=== PATIENT | female | born 1950 | race Caucasian/White ===

== ENCOUNTER 2023-05-16 12:50 | Inpatient (IN) | payer MEDICARE ==
[~2023-05-16] VITALS: Ht 170.2 cm; Wt 68.5 kg
[2023-05-16] MEDS: IV NS 0.9% 1,000 ML BAG IV ONE (13:49)
[2023-05-16 13:54] LABS: BASOPHILS % (AUTO) 0.1 % (0.0-2.0); EOSINOPHILS % (AUTO) 0.1 % (0.0-6.0); HEMATOCRIT 37 % (33-45); HEMOGLOBIN 12.4 g/dL (11.5-14.8); LYMPHOCYTES # (AUTO) 0.2 K/uL (0.8-4.8); LYMPHOCYTES % (AUTO) 4.4 % (20.0-44.0); MEAN CORPUSCULAR HEMOGLOBIN 34 PG (26.0-33.0); MEAN CORPUSCULAR HGB CONC 33 g/dl (31.0-36.0); MEAN CORPUSCULAR VOLUME 103 fL (82-100); MONOCYTES # (AUTO) 0.1 K/uL (0.1-1.30); NEUTROPHILS # (AUTO) 3.8 K/uL (1.8-8.9); NEUTROPHILS % (AUTO) 92.4 % (43.0-81.0); PLATELET COUNT (AUTO) 156 K/uL (150-450); RED CELL DISTRIBUTION WIDTH 12.8 % (11.5-15.0); WHITE BLOOD COUNT (AUTO) 4.1 K/uL (4.3-11.0)
[2023-05-16 14:18] LABS: INR 1.04 (0.91-1.10); PARTIAL THROMBOPLASTIN TIME 34.7 SEC (24.3-34.3); PROTHROMBIN TIME 10.7 SECS (9.2-11.1)
[2023-05-16 14:53] LABS: CALCIUM, SERUM 7.8 mg/dL (8.5-10.1); CARBON DIOXIDE 20 mmol/L (21-32); CHLORIDE 104 mmol/L (98-107); CREATININE 2.4 mg/dL (0.6-1.3); GLUCOSE 152 mg/dL (74-106); POTASSIUM 3.9 mmol/L (3.5-5.1); SODIUM SERUM 134 mmol/L (136-145); UREA NITROGEN, BLOOD 29 mg/dL (7-18)
[2023-05-16 14:58] LABS: ALANINE AMINOTRANSFERASE 1097 U/L (12-78); ALBUMIN 3.5 g/dL (3.4-5.0); ALKALINE PHOSPHATASE 55 U/L (46-116); ASPARTATE AMINOTRANSFERASE 978 U/L (15-37); BILIRUBIN,DIRECT 0.1 mg/dL (0.0-0.2); BILIRUBIN,TOTAL 0.2 mg/dL (0.2-1.0); TOTAL PROTEIN, SERUM 6.6 g/dL (6.4-8.2)
[2023-05-16 15:26] LABS: CREATINE KINASE, TOTAL 637 U/L (26-192)
[2023-05-16] MEDS ORDERED: RISP2TAB85 PO (15:33)
[2023-05-16] MEDS ORDERED: ATOR10TA PO (15:33)
[2023-05-16] MEDS ORDERED: ESCI20TA PO (15:33)
[2023-05-16] MEDS ORDERED: LITH300C2 PO (15:33)
[2023-05-16] MEDS ORDERED: PRIM50TA27 PO (15:33)
[2023-05-16] MEDS ORDERED: MELO-105 PO (15:33)
[2023-05-16 15:34] LABS: NT-PRO BNP 503 pg/mL (0-125)
[2023-05-16] MEDS ORDERED: Z GUARD REMEDY 4 OZ OINT TP PRN (17:00)
[2023-05-16] MEDS ORDERED: ONDANSETRON HCL/PF 4 MG/2 ML VIAL IVP PRN (17:00)
[2023-05-16] MEDS ORDERED: ACETAMINOPHEN 325 MG TABLET PO PRN (17:00)
[2023-05-16 18:22] LABS: SERUM AMMONIA < 11 umol/L (11-32)
[2023-05-16 20:30] VITALS: BP 103/58; TEMP 98.4; O2SAT 97
[2023-05-16] MEDS: LITHIUM CARBONATE (300 MG CAP) 300 MG CAPSULE PO SCH (21:30)
[2023-05-16] MEDS: risperiDONE 1 MG TABLET PO SCH (21:35)
[2023-05-16] MEDS: IV 1/2NS 1000 ML 1,000 ML IV PRN (22:31)
[2023-05-16 23:19] VITALS: BP 97/54; TEMP 98.6; O2SAT 92
[2023-05-17 01:38] VITALS: BP 103/58; TEMP 98.4; O2SAT 97
[2023-05-17 04:00] VITALS: BP 111/59; TEMP 98.2; O2SAT 97
[2023-05-17 05:41] VITALS: BP 103/58; TEMP 98.2; O2SAT 97
[2023-05-17 07:57] LABS: BASOPHILS % (AUTO) 0.1 % (0.0-2.0); EOSINOPHILS % (AUTO) 1.3 % (0.0-6.0); HEMATOCRIT 31 % (33-45); HEMOGLOBIN 10.8 g/dL (11.5-14.8); LYMPHOCYTES # (AUTO) 0.9 K/uL (0.8-4.8); LYMPHOCYTES % (AUTO) 30.8 % (20.0-44.0); MEAN CORPUSCULAR HEMOGLOBIN 36 PG (26.0-33.0); MEAN CORPUSCULAR HGB CONC 35 g/dl (31.0-36.0); MEAN CORPUSCULAR VOLUME 103 fL (82-100); MONOCYTES # (AUTO) 0.3 K/uL (0.1-1.30); MONOCYTES % (AUTO) 8.4 % (2.0-12.0); NEUTROPHILS # (AUTO) 1.8 K/uL (1.8-8.9); NEUTROPHILS % (AUTO) 59.4 % (43.0-81.0); PLATELET COUNT (AUTO) 130 K/uL (150-450); RED BLOOD CELL COUNT(AUTO) 3.01 MIL/uL (4.0-5.2); RED CELL DISTRIBUTION WIDTH 12.9 % (11.5-15.0)
[2023-05-17 08:00] VITALS: BP 109/52; TEMP 98.1; O2SAT 97
[2023-05-17 08:09] LABS: CALCIUM, SERUM 9.4 mg/dL (8.5-10.1); CREATININE 0.8 mg/dL (0.6-1.3); POTASSIUM 3.9 mmol/L (3.5-5.1)
[2023-05-17 08:12] LABS: BILIRUBIN,TOTAL 0.7 mg/dL (0.2-1.0); MAGNESIUM 1.9 mg/dL (1.8-2.4); PHOSPHORUS 3.1 mg/dL (2.5-4.9); TOTAL PROTEIN, SERUM 6.4 g/dL (6.4-8.2)
[2023-05-17] MEDS: PRIMIDONE 50 MG TABLET PO SCH (08:22)
[2023-05-17 14:08] LABS: HBSAG SCREEN Negative (Negative); HEPATITIS A AB, IgM Negative (Negative); HEPATITIS B CORE AB, IgM Negative (Negative)
[2023-05-17 16:00] VITALS: BP 106/55; TEMP 99.5; O2SAT 95
[2023-05-17] MEDS: risperiDONE 1 MG TABLET PO SCH (17:05)
[2023-05-17 20:47] VITALS: BP 111/64; TEMP 98.1; O2SAT 98
[2023-05-18] VITALS (7 sets, daily range): BP systolic 104–120; BP diastolic 53–66; TEMP 98–98.8; O2SAT 97–98
[2023-05-18] MEDS: LITHIUM CARBONATE 150 MG CAPSULE PO SCH (10:27)
[2023-05-18] MEDS: DOCUSATE SODIUM 100 MG CAPSULE PO SCH (16:10)
[2023-05-18] MEDS: risperiDONE 1 MG TABLET PO SCH (17:05)
[2023-05-19] VITALS: BP 112/62; TEMP 97.9; O2SAT 97
[2023-05-19 04:00] VITALS: BP 123/62; TEMP 97.7; O2SAT 97
[2023-05-19 04:28] VITALS: BP 123/62; TEMP 97.7; O2SAT 97
[2023-05-19 07:30] VITALS: BP 111/64; TEMP 98.4; O2SAT 99
[2023-05-19 16:00] VITALS: BP 131/66; TEMP 98.8; O2SAT 97
[2023-05-19] MEDS ORDERED: LITHIUM CARBONATE 150 MG CAPSULE PO SCH (21:00)
== END 2023-05-19 18:36 | DRG 558 ==
LOC: ER 12:55 → MED 19:17 → TELE 05-17 04:49
PROVIDERS: ADMIT Internal Medicine; ATTEND Internal Medicine
DX: M62.82 Rhabdomyolysis (principal); N17.9 Acute kidney failure, unspecified; E87.1 Hypo-osmolality and hyponatremia; I50.32 Chronic diastolic (congestive) heart failure; R74.01 Elevation of levels of liver transaminase levels; E78.5 Hyperlipidemia, unspecified; D64.9 Anemia, unspecified; Z20.822 Contact with and (suspected) exposure to COVID-19; T43.595A Adverse effect of other antipsychotics and neuroleptics, initial encounter; F25.0 Schizoaffective disorder, bipolar type; E86.9 Volume depletion, unspecified; E83.51 Hypocalcemia; R53.1 Weakness; W18.30XA Fall on same level, unspecified, initial encounter; Y93.9 Activity, unspecified; Y92.009 Unspecified place in unspecified non-institutional (private) residence as the place of occurrence of the external cause
CPT/HCPCS: 36415; 70450-TC; 71045-TC; 80048-TC; 80053-TC; 80076-TC; 80178-TC; 82140-TC; 82550-TC; 82553; 82607-TC; 83605-TC; 83735-TC; 83880; 84100-TC; 84443-TC; 84484-TC; 85025-TC; 85730-TC; 86850-TC; 87040-TC; 87340; 97110-TC; 97116-TC; 97530-TC; A4223; G0378; J3490; J7030; J7042

== ENCOUNTER 2024-10-21 12:36 | Inpatient (IN) | payer MEDICARE, BC ==
[~2024-10-21] VITALS: Ht 170.2 cm; Wt 66.7 kg
[2024-10-21] MEDS: IV NS 0.9% 1,000 ML BAG IV ONE (13:10)
[2024-10-21 13:12] LABS: PLATELET COUNT (AUTO) 238 K/uL (150-450); RED BLOOD CELL COUNT(AUTO) 3.89 MIL/uL (4.0-5.2); RED CELL DISTRIBUTION WIDTH 13.8 % (11.5-15.0); WHITE BLOOD COUNT (AUTO) 6.0 K/uL (4.3-11.0)
[2024-10-21 13:26] LABS: CALCIUM, SERUM 10.7 mg/dL (8.5-10.1); CREATININE 0.9 mg/dL (0.6-1.3); SODIUM SERUM 145 mmol/L (136-145); UREA NITROGEN, BLOOD 23 mg/dL (7-18)
[2024-10-21 13:32] LABS: ASPARTATE AMINOTRANSFERASE 81 U/L (15-37); TOTAL PROTEIN, SERUM 7.9 g/dL (6.4-8.2)
[2024-10-21 13:35] LABS: INR 1.06 (0.91-1.10); LACTIC ACID 1.9 mmol/L (0.4-2.0)
[2024-10-21 13:54] LABS: APPEARANCE,URINE CLEAR (CLEAR); BLOOD, URINE NEGATIVE Ery/uL (NEGATIVE); LEUKOCYTE ESTERASE ,URINE NEGATIVE (NEGATIVE); NITRITE, URINE NEGATIVE (NEGATIVE); UGLUCOSE NEGATIVE (NEGATIVE)
[2024-10-21] MEDS ORDERED: OLAN10TA3 PO (13:56)
[2024-10-21] MEDS ORDERED: PRIM50TA27 PO (13:56)
[2024-10-21] MEDS ORDERED: ESCI20TA PO (13:56)
[2024-10-21] MEDS ORDERED: ATOR10TA PO (13:56)
[2024-10-21] MEDS ORDERED: VALP250C3 PO (13:56)
[2024-10-21] MEDS ORDERED: MELO-107 PO (13:56)
[2024-10-21] MEDS ORDERED: LITH300C2 PO (13:56)
[2024-10-21 14:09] LABS: ADD URINE CULTURE NO; SQUAMOUS EPITHELIAL CELL,UR 0-2 /HPF (None Seen)
[2024-10-21] MEDS ORDERED: ONDANSETRON HCL/PF 4 MG/2 ML VIAL IVP PRN (14:30)
[2024-10-21] MEDS ORDERED: IV NS 0.9% 1,000 ML IV SCH (14:30)
[2024-10-21] MEDS ORDERED: MAG HYDROX/AL HYDROX/SIMETH 30 ML UDC PO PRN (14:30)
[2024-10-21] MEDS ORDERED: Z GUARD REMEDY 4 OZ OINT TP PRN (14:30)
[2024-10-21] MEDS ORDERED: ACETAMINOPHEN 325 MG TABLET PO PRN (14:30)
[2024-10-21] MEDS: IV NS 0.9% 1,000 ML IV SCH (17:14)
[2024-10-21 18:00] VITALS: BP 101/46; TEMP 98.2; O2SAT 100
[2024-10-21 20:00] VITALS: BP 102/62; TEMP 98.8; O2SAT 98
[2024-10-21] MEDS: ENOXAPARIN SODIUM 40 MG/0.4 ML DISP.SYRIN SQ SCH (20:25)
[2024-10-22] VITALS: BP_SYST 101; BP_DIAS 57; BP_DIAS 70; TEMP 97.3; TEMP 98; O2SAT 97; O2SAT 98
[2024-10-22 04:00] VITALS: BP 108/76; TEMP 97.5; O2SAT 99
[2024-10-22 04:40] VITALS: BP 108/76; TEMP 97.8; O2SAT 98
[2024-10-22 08:00] VITALS: BP 107/52; TEMP 97.2; O2SAT 97
[2024-10-22] MEDS: IV NS 0.9% 1,000 ML IV PRN (09:26)
[2024-10-22 11:37] LABS: PLATELET COUNT (AUTO) 180 K/uL (150-450); RED BLOOD CELL COUNT(AUTO) 3.05 MIL/uL (4.0-5.2); RED CELL DISTRIBUTION WIDTH 14.2 % (11.5-15.0); WHITE BLOOD COUNT (AUTO) 3.7 K/uL (4.3-11.0)
[2024-10-22 12:21] LABS: CALCIUM, SERUM 9.0 mg/dL (8.5-10.1); CREATININE 0.8 mg/dL (0.6-1.3); PHOSPHORUS 1.8 mg/dL (2.5-4.9); SODIUM SERUM 146.0 mmol/L (136-145); UREA NITROGEN, BLOOD 26.0 mg/dL (7-18)
[2024-10-22 12:37] LABS: CREATINE KINASE, TOTAL 705.0 U/L (26-192); LDL 103.0 mg/dL (0-99)
[2024-10-22] MEDS: POTASSIUM CHLORIDE 20 MEQ TAB.PRT.SR PO ONE (13:26)
[2024-10-22] MEDS: IV 1/2NS 1000 ML 1,000 ML IV SCH (13:26)
[2024-10-22 16:00] VITALS: BP 98/97; TEMP 98.4; O2SAT 97
[2024-10-22] MEDS: K PHOS NEUTRAL 250 MG TABLET PO ONE (16:03)
[2024-10-22] MEDS: MAGNESIUM HYDROXIDE 30 ML UDC PO PRN (17:10)
[2024-10-22 20:00] VITALS: BP 107/60; TEMP 98.6; O2SAT 95
[2024-10-22] MEDS: OLANZAPINE 10 MG TABLET PO SCH (22:19)
[2024-10-22] MEDS: LITHIUM CARBONATE 150 MG CAPSULE PO SCH (23:06)
[2024-10-23 06:40] LABS: PLATELET COUNT (AUTO) 167 K/uL (150-450); RED BLOOD CELL COUNT(AUTO) 3.01 MIL/uL (4.0-5.2); RED CELL DISTRIBUTION WIDTH 13.6 % (11.5-15.0); WHITE BLOOD COUNT (AUTO) 5.4 K/uL (4.3-11.0)
[2024-10-23 07:03] LABS: CALCIUM, SERUM 9.7 mg/dL (8.5-10.1); CREATININE 0.7 mg/dL (0.6-1.3); PHOSPHORUS 3.0 mg/dL (2.5-4.9); SODIUM SERUM 145.0 mmol/L (136-145); UREA NITROGEN, BLOOD 14.0 mg/dL (7-18)
[2024-10-23 08:00] VITALS: BP 117/54; TEMP 98.1; O2SAT 96
[2024-10-23] MEDS: ESCITALOPRAM OXALATE (10 MG) 10 MG TABLET PO SCH (08:26)
[2024-10-23] MEDS: ATORVASTATIN 10 MG TABLET PO SCH (08:42)
[2024-10-23] MEDS: PRIMIDONE 50 MG TABLET PO SCH (12:21)
[2024-10-23] MEDS ORDERED: ATOR10TA PO (13:41)
[2024-10-23] MEDS ORDERED: LITH150C PO (13:41)
[2024-10-23] MEDS ORDERED: ESCI10TA PO (13:41)
[2024-10-23] MEDS ORDERED: Olanzapine PO (13:41)
[2024-10-23] MEDS ORDERED: PRIM50TA27 PO (13:41)
[2024-10-23 16:00] VITALS: BP 118/71; TEMP 98.6; O2SAT 98
== END 2024-10-23 19:19 | DRG 640 ==
LOC: ER 12:40 → MED 15:17 → TELE 17:13 → MED 10-22 15:41
PROVIDERS: ADMIT Nurse Practitioner Acute Care; ATTEND Nurse Practitioner Acute Care
DX: E86.0 Dehydration (principal); G93.41 Metabolic encephalopathy; I21.A1 Myocardial infarction type 2; M62.82 Rhabdomyolysis; F31.89 Other bipolar disorder; E87.0 Hyperosmolality and hypernatremia; E83.52 Hypercalcemia; E78.5 Hyperlipidemia, unspecified; F25.9 Schizoaffective disorder, unspecified; D72.819 Decreased white blood cell count, unspecified; E83.39 Other disorders of phosphorus metabolism; E86.1 Hypovolemia; E87.6 Hypokalemia; M89.8X9 Other specified disorders of bone, unspecified site; E83.9 Disorder of mineral metabolism, unspecified; Z87.891 Personal history of nicotine dependence; M79.662 Pain in left lower leg; M79.661 Pain in right lower leg; R74.01 Elevation of levels of liver transaminase levels; F39 Unspecified mood [affective] disorder
CPT/HCPCS: 36415; 70450-TC; 71045-TC; 80048-TC; 80061-TC; 80076-TC; 80178-TC; 81001; 82550-TC; 82553; 83605-TC; 83735-TC; 83970; 84100-TC; 84439-TC; 84443-TC; 84484-TC; 85025-TC; 85730-TC; 87040-TC; 87086-TC; 93307-TC; 93970-TC; 97110-TC; 97116-TC; 97530-TC; A4223; G0378; J1650; J3490; J7030